=== PATIENT | male | born 1970 | race Caucasian/White ===

== ENCOUNTER → 2024-06-15 06:24 | Day surgery (SDC) | payer BC, SELFPAY | LOC: GI 06:24 | PROVIDERS: ATTENDING PHYSICIAN Internal Medicine Gastroenterology | DX: Z12.11 Encounter for screening for malignant neoplasm of colon (principal); D12.0 Benign neoplasm of cecum; D12.2 Benign neoplasm of ascending colon; K57.30 Diverticulosis of large intestine without perforation or abscess without bleeding; K64.8 Other hemorrhoids | CPT/HCPCS: 45385; 45380; 88305 ==

== ENCOUNTER → 2024-12-25 14:07 | Outpatient (REF) | payer BC, SELFPAY | LOC: RAD 14:07 | PROVIDERS: ATTENDING PHYSICIAN Nurse Practitioner Family | DX: M54.2 Cervicalgia (principal); M54.12 Radiculopathy, cervical region; M54.9 Dorsalgia, unspecified | CPT/HCPCS: 72052; 72072 ==